=== PATIENT | male | born 1955 | race Caucasian/White ===

== ENCOUNTER 2019-05-07 08:05 | Day surgery (SDC) | payer OTHER ==
[~2019-05-07] VITALS: Ht 182.9 cm; Wt 98.8 kg
[~2019-05-07 08:05] MED LIST: ACETAMINOPHEN 325 MG TAB PO PRN; BSS with VANC/TOB/EPI for EYE CASES IR ONE; CYCLOPENTOLATE 2% OPHTH SOLN 2ML BTL OD ONE; HEALON DUET PRO(HEALON 10MG/ML 0.55ML & HEALON ENDOCOAT 30MG/ML 0.85ML) As Ordered ONE; LIDOCAINE 1% MDV 20ML VIAL SQ PRN; LIDOCAINE 1% SDV 5 ML VIAL As Ordered ONE; LIDOCAINE 3.5 % 1ML OPHTH TOPICAL GEL OU ONE; MIDAZOLAM INJ 2 MG/2 ML VIAL (J2250) As Ordered ONE; MOXIFLOXACIN IN BSS 0.25MG/0.25ML INTRACAMERAL INJ (OR EYE ONLY)(J2280) As Ordered ONE; OFLOXACIN 0.3 % (OCUFLOX) OPTH SOL 5ML OD ONE; PHENYLEPHRINE 2.5% OPHTH SOL 2ML OD ONE; PHENYLEPHRINE HCL 10 % OPHTH. SOL 5ML OD PRN; POVIDONE-IODINE 5% OPHTH PREP SOL 30ML As Ordered ONE; TRIAMCINOLONE PRES FR 40 MG/ML 1ML(TRIESENCE)(OR EYE ONLY)(J3300 PER 1MG) As Ordered ONE; TROPICAMIDE 1% OPHTH SOLN 2ML OD ONE
[2019-05-07] MEDS ORDERED: fentaNYL 100 MCG/2 ML INJECTION (J3010) As Ordered ONE (09:05)
[2019-05-07] MEDS ORDERED: LIDOCAINE 2% W/EPIN INJ 20ML **PRES FREE As Ordered ONE (09:09)
[2019-05-07] MEDS ORDERED: AcetaZOLAMIDE 500 MG ER CAP As Ordered ONE (09:33)
[2019-05-07 09:40] VITALS: BP 154/67
[2019-05-07] MEDS ORDERED: TRIMETHOBENZAMIDE 300 MG CAP PO PRN (10:00)
[2019-05-07] MEDS ORDERED: AcetaZOLAMIDE 500 MG ER CAP PO ONE (10:00)
--- NOTE | 2019-05-08 09:48 | RO ---
DATE OF PROCEDURE: 05/07/2019 PREPROCEDURE DIAGNOSIS: Cataract of right eye. POSTPROCEDURE DIAGNOSIS: Cataract of right eye. PROCEDURE: Femtosecond laser and phacoemulsification of the intraocular lens with lens implantation with the help of Optiwave refractory analysis (ORA) right eye. Intraocular lens power used was , power diopter. SURGEON: Teto Anthony MD THREAD DRAWER: None. ANESTHESIA: Local IV standby. FINDINGS: Cataract of right eye. COMPLICATIONS: None. DESCRIPTION OF PROCEDURE: The patient was brought to the operating room and laid in supine position. A lid speculum was placed, and patient was brought under the femtosecond laser. After the satisfactory placement of the patient interface, primary incision, secondary incision, and arcuate incisions with lens fragmentation was done without any complication per plan. The patients interface was then removed and lid speculum removed. Patient was placed under the microscope. The eye was prepped and draped in a sterile fashion for ophthalmic surgery. Lid speculum was placed. The secondary incision was opened, and EndoCoat was injected into the anterior chamber. The temporal clear corneal incision was then opened and capsulorrhexis removed, followed by hydrodissection. This was followed by phacoemulsification of the lens within the capsular bag. Cortical material was then aspirated, and Healon was injected into the capsular bag. After cortical cleanup Healon was placed in the capsular bag and the anterior chamber. Intraocular pressure was checked and was noted to be satisfactory, following which the ORA calculations were reviewed. Intraocular lens power was chosen and intraocular lens placed. Excess Healon was aspirated. Wound was hydrated. The lid speculum was removed, and patient was returned to the recovery room in stable condition.
== END 2019-05-07 09:55 | disposition home or self-care (01) ==
LOC: M SDC 08:05
PROVIDERS: ATTEND Ophthalmology
DX: H25.9 Unspecified age-related cataract (principal)
CPT/HCPCS: 66984; 92015; J2250; J2280; J3010; J3300; V2632

== ENCOUNTER 2019-05-14 08:02 | Day surgery (SDC) | payer OTHER ==
[~2019-05-14] VITALS: Ht 180.3 cm; Wt 98.0 kg
[~2019-05-14 08:02] MED LIST changes: -CYCLOPENTOLATE 2% OPHTH SOLN 2ML BTL OD ONE; +CYCLOPENTOLATE 2% OPHTH SOLN 2ML BTL OS ONE; -MIDAZOLAM INJ 2 MG/2 ML VIAL (J2250) As Ordered ONE; -OFLOXACIN 0.3 % (OCUFLOX) OPTH SOL 5ML OD ONE; +OFLOXACIN 0.3 % (OCUFLOX) OPTH SOL 5ML OS ONE; -PHENYLEPHRINE 2.5% OPHTH SOL 2ML OD ONE; +PHENYLEPHRINE 2.5% OPHTH SOL 2ML OS ONE; -PHENYLEPHRINE HCL 10 % OPHTH. SOL 5ML OD PRN; +PHENYLEPHRINE HCL 10 % OPHTH. SOL 5ML OS PRN; -TROPICAMIDE 1% OPHTH SOLN 2ML OD ONE; +TROPICAMIDE 1% OPHTH SOLN 2ML OS ONE
[2019-05-14] MEDS ORDERED: MIDAZOLAM INJ 2 MG/2 ML VIAL (J2250) As Ordered ONE (08:49)
[2019-05-14] MEDS ORDERED: fentaNYL 100 MCG/2 ML INJECTION (J3010) As Ordered ONE (08:49)
[2019-05-14] MEDS ORDERED: AcetaZOLAMIDE 500 MG ER CAP As Ordered ONE (09:42)
[2019-05-14 09:45] VITALS: BP 129/74
[2019-05-14] MEDS ORDERED: ONDANSETRON 4MG/2ML VIAL (J2405) IV PRN (10:00)
[2019-05-14] MEDS ORDERED: AcetaZOLAMIDE 500 MG ER CAP PO ONE (10:00)
[2019-05-14] MEDS ORDERED: TRIMETHOBENZAMIDE 300 MG CAP PO PRN (10:00)
--- NOTE | 2019-05-15 11:36 | RO ---
DATE OF PROCEDURE: 05/14/2019 PREPROCEDURE DIAGNOSIS: Cataract, left eye. POSTPROCEDURE DIAGNOSIS: Cataract, left eye. PROCEDURE: Femtosecond laser with phacoemulsification and intraocular lens implantation with the help of ORA, left eye. Power [id number] 10 Diopter. SURGEON: Teto Anthony MD COMPUTER GAME DESIGNER: None. ANESTHESIA: DESCRIPTION OF PROCEDURE: The patient was brought to the operating room and laid in the supine position. The eye was prepped and draped in a sterile fashion for ophthalmic surgery following which a lid speculum was placed. A sideport incision was then made and EndoCoat was injected into the anterior chamber. A temporal clear corneal incision was made followed by capsulorrhexis. This was followed by hydrodissection and the nucleus was rotated within the capsular bag. Phacoemulsification was carried out in a divide and conquer method, followed by aspiration of the cortical material with the help of the irrigation and aspiration cannula. Healon was then placed in the capsular bag and the anterior chamber intraocular pressure was checked and was noted to be adequate. Multiple ORA calculations were then taken and the intraocular lens power chosen and inserted. Excess viscoelastic was then aspirated. The wound was hydrated, intracameral moxifloxacin was given and Sub-Tenon triamcinolone injection was given. At the end of the case, the lid speculum was remove and patient was returned to the recovery room in stable condition. edited: 05/24/2019 [id number] [id number]
== END 2019-05-14 09:55 | disposition home or self-care (01) ==
LOC: M SDC 08:02
PROVIDERS: ATTEND Ophthalmology
DX: H25.9 Unspecified age-related cataract (principal)
CPT/HCPCS: 66984; 67515; 92015; J2250; J2280; J3010; J3300; V2632